=== PATIENT | female | born 1980 | race African-American/Black ===

== ENCOUNTER 2019-10-15 02:36 | Emergency (ER) | payer OTHER ==
[~2019-10-15] VITALS: Ht 152.4 cm; Wt 109.0 kg
[2019-10-15] MEDS ORDERED: NAPROXEN 500 MG TABLET PO ONE (03:30)
[2019-10-15] MEDS ORDERED: NEOMY/BACITR/POLYMYXIN OINT PACKET. TP ONE (03:30)
[2019-10-15] MEDS ORDERED: CEPH-264 PO (03:34)
[2019-10-15] MEDS ORDERED: ACET-704 PO (03:35)
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
[2019-10-15 04:30] VITALS: BP 162/91
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
== END 2019-10-15 04:37 | disposition home or self-care (01) ==
LOC: ER 02:36
DX: S80.812A Abrasion, left lower leg, initial encounter (principal); M79.641 Pain in right hand; M19.90 Unspecified osteoarthritis, unspecified site; V00.141A Fall from scooter (nonmotorized), initial encounter; Y93.89 Activity, other specified; Y92.89 Other specified places as the place of occurrence of the external cause; Y99.8 Other external cause status
CPT/HCPCS: 29125; 73130; 99285

== ENCOUNTER 2021-06-09 20:35 | Observation (INO) | payer OTHER ==
[~2021-06-09] VITALS: Ht 152.4 cm; Wt 120.2 kg
[~2021-06-09 20:35] MED LIST: ACET-704 PO; CEPH-264 PO
[2021-06-09 22:05] LABS: BASO # 0.1 x10^3/uL (0.0-0.2); BASO % 2 % (0-3); EOS # 0.4 x10^3/uL (0.0-0.7); EOS % 5 % (0-3); HEMATOCRIT 35.1 % (36.0-47.0); HEMOGLOBIN 11.2 g/dL (12.0-15.5); LYMPH # 2.3 x10^3/uL (1.0-4.8); LYMPH % 28 % (24-48); MEAN CORPUSCULAR HEMOGLOBIN 22 pg (25-35); MEAN CORPUSCULAR HGB CONC 32 g/dL (31-37); MEAN CORPUSCULAR VOLUME 68 fL (79-100); MONO # 0.7 x10^3/uL (0.0-1.1); MONO % 8 % (0-9); NEUT # 4.7 x10^3/uL (1.8-7.7); NEUT % 57 % (31-73); PLATELET COUNT 386 x10^3/uL (140-400); RED BLOOD COUNT 5.17 x10^6/uL (3.50-5.40); RED CELL DISTRIBUTION WIDTH 19.9 % (11.5-14.5); WHITE BLOOD COUNT 8.3 x10^3/uL (4.0-11.0)
[2021-06-09 22:08] LABS: CLARITY,URINE HAZY; COLOR,URINE STRAW
[2021-06-09 22:09] LABS: BILIRUBIN,URINE NEGATIVE (NEG); NITRITE,URINE NEGATIVE (NEG); PROTEIN,URINE NEGATIVE (NEG-TRACE); UROBILINOGEN,URINE 0.2 mg/dL (0.2 mg/dL)
[2021-06-09 22:12] LABS: BACTERIA,URINE MODERATE /HPF (0-FEW); RBC,URINE OCC /HPF (0-2); WBC,URINE OCC /HPF (0-4)
[2021-06-09] MEDS ORDERED: ONDANSETRON PF 4 MG/2 ML VIAL. IVP ONE (22:15)
[2021-06-09] MEDS ORDERED: IV NORMAL SALINE 1000ML BAG 1,000 ML IV ONE (22:15)
[2021-06-09 22:16] LABS: GFR 75.1; POTASSIUM 3.7 mmol/L (3.5-5.1)
[2021-06-09 22:22] LABS: ALBUMIN 3.6 g/dL (3.4-5.0); ALBUMIN/GLOBULIN RATIO 0.8 (1.0-1.7); TOTAL BILIRUBIN 0.4 mg/dL (0.2-1.0); TOTAL PROTEIN 8.3 g/dL (6.4-8.2)
[2021-06-09 22:44] LABS: INFLUENZA A PATIENT NEGATIVE (NEGATIVE); INFLUENZA B PATIENT NEGATIVE (NEGATIVE)
--- NOTE | 2021-06-09 23:25 | PHYS DOC ---
Past Medical History Past Medical History: Hypertension, Other Additional Past Medical Histor: OSTEOARTHRITIS Past Surgical History: Additional Past Surgical Histo: FINGER SURGERY. Smoking Status: Never Smoker Alcohol Use: None Drug Use: None General Adult EDM: Chief Complaint: NAUSEA/VOMITING/DIARRHEA HPI: HPI: 40-year-old female presents with a chief complaint of nausea vomiting diarrhea and epigastric discomfort. Patient current symptoms started this past wednesday. Pain is located epigastric/RUQ without radiation. Symptoms started after a fried fish dinner on Wednesday.. Pain nausea and vomiting continue. Patient has had no relief with zofran. Review of Systems: Review of Systems: Constitutional: Denies fever or chills. [] Eyes: Denies change in visual acuity. [] HENT: Denies nasal congestion or sore throat. [] Respiratory: Denies cough or shortness of breath. [] Cardiovascular: Denies chest pain or edema. [] GI: positive abdominal pain, nausea, vomiting, diarrhea. [] : Denies dysuria. [] Musculoskeletal: Denies back pain or joint pain. [] Integument: Denies rash. [] Neurologic: Denies headache, focal weakness or sensory changes. [] Endocrine: Denies polyuria or polydipsia. [] Lymphatic: Denies swollen glands. [] Psychiatric: Denies depression or anxiety. [] Heart Score: C/O Chest Pain: N/A Risk Factors: Risk Factors: DM, Current or recent (<one month) smoker, HTN, HLP, family history of CAD, obesity. Risk Scores: Score 0 - 3: 2.5% MACE over next 6 weeks - Discharge Home Score 4 - 6: 20.3% MACE over next 6 weeks - Admit for Clinical Observation Score 7 - 10: 72.7% MACE over next 6 weeks - Early Invasive Strategies Current Medications: Current Medications Medications (Trade) Dose Ordered Sig/Samara Start Time Stop Time Status Last Admin Dose Admin Ondansetron HCl (Zofran) 4 mg 1X ONCE 06/09/21 22:15 06/09/21 22:16 DC 06/09/21 22:47 4 MG Sodium Chloride 1,000 ml @ 1,000 mls/hr 1X ONCE 06/09/21 22:15 06/09/21 23:14 DC 06/09/21 22:47 1,000 MLS/HR Allergies: Allergies: Allergies Coded Allergies Type Severity Reaction Last Updated Verified morphine Allergy Intermediate Itching 10/15/19 Yes Physical Exam: PE: Constitutional: Well developed, well nourished, no acute distress, non-toxic appearance. [] HENT: Normocephalic, atraumatic, bilateral external ears normal, oropharynx moist, no oral exudates, nose normal. [] Eyes: PERRLA, EOMI, conjunctiva normal, no discharge. [] Neck: Normal range of motion, no tenderness, supple, no stridor. [] Cardiovascular:Heart rate regular rhythm, no murmur [] Lungs & Thorax: Bilateral breath sounds clear to auscultation [] Abdomen: Bowel sounds normal, soft, no masses, no pulsatile masses. [tender to palpation epigastic and RUQ] Skin: Warm, dry, no erythema, no rash. [] Back: No tenderness, no CVA tenderness. [] Extremities: No tenderness, no cyanosis, no clubbing, ROM intact, no edema. [] Neurologic: Alert and oriented X 3, normal motor function, normal sensory function, no focal deficits noted. [] Psychologic: Affect normal, judgement normal, mood normal. [] Current Patient Data: Labs: Laboratory Tests Test 06/09/21 21:55 06/09/21 21:56 06/09/21 22:01 06/09/21 22:15 White Blood Count 8.3 x10^3/uL (4.0-11.0) Red Blood Count 5.17 x10^6/uL (3.50-5.40) Hemoglobin 11.2 g/dL (12.0-15.5) L Hematocrit 35.1 % (36.0-47.0) L Mean Corpuscular Volume 68 fL (79-100) L Mean Corpuscular Hemoglobin 22 pg (25-35) L Mean Corpuscular Hemoglobin Concent 32 g/dL (31-37) Red Cell Distribution Width 19.9 % (11.5-14.5) H Platelet Count 386 x10^3/uL (140-400) Neutrophils (%) (Auto) 57 % (31-73) Lymphocytes (%) (Auto) 28 % (24-48) Monocytes (%) (Auto) 8 % (0-9) Eosinophils (%) (Auto) 5 % (0-3) H Basophils (%) (Auto) 2 % (0-3) Neutrophils # (Auto) 4.7 x10^3/uL (1.8-7.7) Lymphocytes # (Auto) 2.3 x10^3/uL (1.0-4.8) Monocytes # (Auto) 0.7 x10^3/uL (0.0-1.1) Eosinophils # (Auto) 0.4 x10^3/uL (0.0-0.7) Basophils # (Auto) 0.1 x10^3/uL (0.0-0.2) Platelet Estimate Pending Sodium Level 138 mmol/L (136-145) Potassium Level 3.7 mmol/L (3.5-5.1) Chloride Level 102 mmol/L (98-107) Carbon Dioxide Level 25 mmol/L (21-32) Anion Gap 11 (6-14) Blood Urea Nitrogen 8 mg/dL (7-20) Creatinine 1.0 mg/dL (0.6-1.0) Estimated GFR (Cockcroft-Gault) 75.1 BUN/Creatinine Ratio 8 (6-20) Glucose Level 92 mg/dL (70-99) Calcium Level 9.0 mg/dL (8.5-10.1) Total Bilirubin 0.4 mg/dL (0.2-1.0) Aspartate Amino Transferase (AST) 414 U/L (15-37) H Alanine Aminotransferase (ALT) 600 U/L (14-59) H Alkaline Phosphatase 198 U/L (46-116) H Total Protein 8.3 g/dL (6.4-8.2) H Albumin 3.6 g/dL (3.4-5.0) Albumin/Globulin Ratio 0.8 (1.0-1.7) L Urine Collection Type U cath Urine Color Straw Urine Clarity Hazy Urine pH 6.0 (<5.0-8.0) Urine Specific [place] >=1.030 (1.000-1.030) Urine Protein Negative mg/dL (NEG-TRACE) Urine Glucose (UA) Negative mg/dL (NEG) Urine Ketones (Stick) Negative mg/dL (NEG) Urine Blood Negative (NEG) Urine Nitrite Negative (NEG) Urine Bilirubin Negative (NEG) Urine Urobilinogen Dipstick 0.2 mg/dL (0.2 mg/dL) Urine Leukocyte Esterase Negative (NEG) Urine RBC Occ /HPF (0-2) Urine WBC Occ /HPF (0-4) Urine Squamous Epithelial Cells Mod /LPF Urine Bacteria Moderate /HPF (0-FEW) Urine Mucus Slight /LPF POC Urine HCG, Qualitative Hcg negative (Negative) Influenza Type A Antigen Negative (NEGATIVE) Influenza Type B Antigen Negative (NEGATIVE) SARS-CoV-2 Antigen (Rapid) Negative (NEGATIVE) Laboratory Tests 06/09/21 21:55 Laboratory Tests 06/09/21 21:55 Vital Signs: Vital Signs Date Time Temp Pulse Resp B/P (MAP) Pulse Ox O2 Delivery O2 Flow Rate FiO2 06/09/21 21:30 98.4 71 18 154/73 (100) 100 Room Air 98.4 EKG: EKG: [] Radiology/Procedures: Radiology/Procedures: [] Course & Med Decision Making: Course & Med Decision Making Pertinent Labs and Imaging studies reviewed. (See chart for details) []Treated with zofran, IV fluids, fentanyl and zosyn. Patient admitted to hospitalist with general surgery consult. Konstantin Disclaimer: Konstantin Disclaimer: This electronic medical record was generated, in whole or in part, using a voice recognition dictation system. Departure Departure Impression: Primary Impression: Acute cholecystitis Disposition: ADMITTED INPATIENT Condition: STABLE Referrals: ANGEL EDWARDS APRN (PCP) ANA DURAND DO Jun 09, 2021 23:25
[2021-06-10] VITALS (9 sets, daily range): BP systolic 132–186; BP diastolic 66–99
[2021-06-10] MEDS ORDERED: fentaNYL PF VIAL 100 MCG/2 ML VIAL IVP ONE (00:15)
[2021-06-10] MEDS ORDERED: MORPHINE SULFATE 2 MG/ML INJ. IVP ONE (00:15)
[2021-06-10] MEDS ORDERED: fentaNYL PF VIAL 100 MCG/2 ML VIAL ONE ×4 (00:16→19:18)
--- NOTE | 2021-06-10 01:05 | RAD ---
EXAMINATION: US ABDOMEN LIMITED INDICATION: 40 years, Female, epigastric pain, elevated liver test. COMPARISON: None TECHNIQUE: Grayscale, color Doppler and limited spectral Doppler images of the right upper quadrant w ere obtained. FINDINGS: LIVER: SIZE (LENGTH): 19.4 cm. ECHOGENICITY: Increased PARENCHYMA: Mild heterogeneous echotexture. No discrete focal lesion. INTRAHEPATIC BILE DUCTS: Nondilated. PORTAL VEIN: Patent with normal hepatopedal flow. GALLBLADDER: GALLBLADDER WALL THICKNESS: 4 mm. MORPHOLOGY: Normal morphology. Trace amount of pericholecystic free fluid. LUMEN: Multiple cholelithiasis. Positive Nguyen's sign. COMMON BILE DUCT DIAMETER: 5 mm. RIGHT KIDNEY: MEASURES: 9.8 cm in length. MORPHOLOGY/PARENCHYMA: Normal corticomedullary differentiation with no shadowing calculus or discrete masses. COLLECTING SYSTEM: No hydronephrosis. PANCREAS: VISUALIZED PORTIONS: Head and body APPEARANCE: Within normal limits. OTHER: RETROPERITONEUM, INFERIOR VENA CAVA: Normal caliber. AORTA: Normal caliber. FLUID:No free fluid. IMPRESSION: 1. Gallbladder wall thickening with multiple cholelithiasis and trace amount of pericholecystic fat s tranding. Nguyen's sign is positive. Findings concerning for acute calculus cholecystitis. Clinical c orrelation is advised. 2. Mild hepatomegaly with moderate diffuse steatosis. Electronically signed by: Xin Tejada MD (06/10/2021 1:02 AM) [facility]
[2021-06-10] MEDS ORDERED: ONDANSETRON PF 4 MG/2 ML VIAL. IVP PRN ×3 (01:45→17:45)
[2021-06-10] MEDS ORDERED: PIPERACILLIN/TAZOBACTAM 4.5 GM in IV NORMAL SALINE 100ML 100 ML IV SCH (02:00)
[2021-06-10] MEDS: PIPERACILLIN/TAZOBACTAM 3.375 GM in IV NORMAL SALINE 50ML 50 ML IV SCH ×4 (02:00→19:03)
[2021-06-10 03:13] LABS: ANISOCYTOSIS SLIGHT; HYPOCHROMIA MOD; MICROCYTOSIS MARKED; PLT ESTIMATE ADEQUATE (ADEQUATE); POLYCHROMASIA SLIGHT
[2021-06-10 03:14] LABS: OVALOCYTES OCC; TARGET CELLS OCC; TEAR DROP CELLS OCC
--- NOTE | 2021-06-10 03:20 | NUR ---
The patient, STEFANY MORRISSEY, 40 y/o, F admitted by BEN YAO MD, was given written information regarding hospital policies, unit procedures and contact persons. Valuables were checked and all questions answered. Pt. is npo. Verbalized understanding. Notified by ER nurse that ER doctor was going to call surgeon about consult. Monitoring.
[2021-06-10] MEDS ORDERED: LISI1TAB37 PO (03:34)
[2021-06-10] MEDS ORDERED: PROCHLORPERAZINE 10 MG/2 ML VIAL. IVP PRN (08:30)
[2021-06-10] MEDS ORDERED: ACETAMINOPHEN 325 MG TABLET. PO PRN (08:30)
[2021-06-10] MEDS ORDERED: ZOLPIDEM 5 MG TABLET. PO PRN (08:30)
[2021-06-10] MEDS ORDERED: ELECTROLYTE (NON-ICU) PROTOCOL. MC PRN (08:30)
[2021-06-10] MEDS ORDERED: CALCIUM CARBONATE 500 MG TAB.CHEW PO PRN (08:30)
--- NOTE | 2021-06-10 08:46 | PDOC1 ---
History and Physical Date of Service: DOS: DATE: 06/10/21 TIME: 08:39 Chief Complaint: Chief Complain: Abdominal pain, nausea vomiting History of Present Illness: HPI: Patient is 40-year-old -[place] female presented to the emergency room overnight due to abdominal pain decreased p.o. intake. She said the symptoms began about a week ago after she had eaten some chicken nachos. Says she de veloped the epigastric right upper quadrant pain and had multiple episodes of vomiting. Initially went to urgent care and there concern for food poisoning was provided symptomatic treatment with antiemetics and pain control. She says over the next few days the symptoms actually subsided. On Wednesday she went out to dinner with her and was not able to eat much but after returning home she ate more of her meal. After that she began having the similar pain nausea vomiting type episodes. Pain was notably worse this time. Initially thought was an episode like last and would self resolve. However through Wednesday and early Wednesday she continued pain and nausea vomiting. Patient presented here last night. Work-up in ER showed acute acalculous cholecystitis on imaging. She was given dose of Zosyn and pain control nausea control and surgery consulted. When I evaluated the patient she was resting in bed said the medications were helping her symptoms. Only home medication is lisinopril for hypertension Past Medical/Surgical History: PMH/PSH: Hypertension Allergies: Allergies: Coded Allergies: aspirin (Verified Allergy, Intermediate, Nausea, 06/10/21) morphine (Verified Allergy, Intermediate, Itching, 10/15/19) Family History: Family History: Hypertension Social History: Social History: Occasional alcohol use. Denies tobacco or drug use Current Medications: Current Medications Current Medications Ondansetron HCl (Zofran) 4 mg 1X ONCE IVP Last administered on 06/09/21at 22:47; Start 06/09/21 at 22:15; Stop 06/09/21 at 22:16; Status DC Sodium Chloride 1,000 ml @ 1,000 mls/hr 1X ONCE IV Last administered on 06/09/21at 22:47; Start 06/09/21 at 22:15; Stop 06/09/21 at 23:14; Status DC Morphine Sulfate (Morphine Sulfate) 2 mg 1X ONCE IVP ; Start 06/10/21 at 00:15; Stop 06/10/21 at 00:16; Status DC Fentanyl Citrate (Fentanyl 2ml Vial) 50 mcg 1X ONCE IVP Last administered on 06/10/21at 00:17; Start 06/10/21 at 00:15; Stop 06/10/21 at 00:16; Status DC Fentanyl Citrate (Fentanyl 2ml Vial) 100 mcg STK-MED ONCE .ROUTE ; Start 06/10/21 at 00:16; Stop 06/10/21 at 00:16; Status DC Piperacillin Sod/ Tazobactam Sod 4.5 gm/Sodium Chloride 100 ml @ 200 mls/hr Q6HRS IV IV ; Start 06/10/21 at 02:00; Status UNV Ondansetron HCl (Zofran) 4 mg PRN Q8HRS PRN IVP NAUSEA/VOMITING; Start 06/10/21 at 01:45; Stop 06/11/21 at 01:44 Fentanyl Citrate (Fentanyl 2ml Vial) 50 mcg PRN Q1HR PRN IVP PAIN; Start 06/10/21 at 01:45; Stop 06/11/21 at 01:44 Piperacillin Sod/ Tazobactam Sod 3.375 gm/Sodium Chloride 50 ml @ 100 mls/hr Q6HRS IV Last administered on 06/10/21at 07:36; Start 06/10/21 at 02:00 Active Scripts Active Reported Lisinopril-Hctz 20-12.5 Mg Tab (Lisinopril/Hydrochlorothiazide) 1 Each Tablet 1 Tab PO DAILY ROS: Review of Systems Review of System Unless noted in HPI 14 point review systems was negative Physical Exam: Vital Signs: Vital Signs Date Time Temp Pulse Resp B/P (MAP) Pulse Ox O2 Delivery O2 Flow Rate FiO2 06/10/21 07:45 Room Air 06/10/21 07:00 98.4 58 18 139/77 (97) 99 98.4 Physcial Exam: GEN: No apparent distress. Alert and oriented HEENT: Normal cephalic, atraumatic, external auditory canals are patent EYES: Extraocular muscles are intact, pupil are equally round and reactive to light and accommodation MUSCULOSKELETAL: Well developed , well nourished, good range of motion ENDOCRINE: No thyromegaly was palpated LYMPHATICS: No cervical chain or axillary nodes were noted HEMATOPOIETIC: No bruising NECK: Supple, no JVD, no thyromegaly was noted LUNGS: Clear to auscultation in all lung cooper without rhonchi or wheezing HEART: RRR, S1, S2 present. Peripheral pulses intact, no obvious murmurs noted ABDOMEN: Very tender in epigastrium and right upper quadrant. Positive Nguyen sign. Not as much tenderness in lower quadrants normal bowel sounds EXTREMITIES: Without clubbing, cyanosis, or edema. Pedal pulses intact. Negative Homans sign NEUROLOGIC: Normal speech and tone. A&O x 3, moves all extremities, no obvious focal deficits PSYCHIATRIC: Normal affect, normal mood. Stable SKIN: No ulcerations or rashes, good skin turgor, no jaundice VASCULAR: Good capillary refill, neurovascular bundle appears to be intact Labs: Labs: Laboratory Tests Test 06/09/21 21:55 06/09/21 21:56 06/09/21 22:01 06/09/21 22:15 White Blood Count 8.3 x10^3/uL (4.0-11.0) Red Blood Count 5.17 x10^6/uL (3.50-5.40) Hemoglobin 11.2 g/dL (12.0-15.5) Hematocrit 35.1 % (36.0-47.0) Mean Corpuscular Volume 68 fL (79-100) Mean Corpuscular Hemoglobin 22 pg (25-35) Mean Corpuscular Hemoglobin Concent 32 g/dL (31-37) Red Cell Distribution Width 19.9 % (11.5-14.5) Platelet Count 386 x10^3/uL (140-400) Neutrophils (%) (Auto) 57 % (31-73) Lymphocytes (%) (Auto) 28 % (24-48) Monocytes (%) (Auto) 8 % (0-9) Eosinophils (%) (Auto) 5 % (0-3) Basophils (%) (Auto) 2 % (0-3) Neutrophils # (Auto) 4.7 x10^3/uL (1.8-7.7) Lymphocytes # (Auto) 2.3 x10^3/uL (1.0-4.8) Monocytes # (Auto) 0.7 x10^3/uL (0.0-1.1) Eosinophils # (Auto) 0.4 x10^3/uL (0.0-0.7) Basophils # (Auto) 0.1 x10^3/uL (0.0-0.2) Platelet Estimate Adequate (ADEQUATE) Polychromasia Slight Hypochromasia Mod Anisocytosis Slight Microcytosis Marked Target Cells Occ Tear Drop Cells Occ Ovalocytes Occ Sodium Level 138 mmol/L (136-145) Potassium Level 3.7 mmol/L (3.5-5.1) Chloride Level 102 mmol/L (98-107) Carbon Dioxide Level 25 mmol/L (21-32) Anion Gap 11 (6-14) Blood Urea Nitrogen 8 mg/dL (7-20) Creatinine 1.0 mg/dL (0.6-1.0) Estimated GFR (Cockcroft-Gault) 75.1 BUN/Creatinine Ratio 8 (6-20) Glucose Level 92 mg/dL (70-99) Calcium Level 9.0 mg/dL (8.5-10.1) Total Bilirubin 0.4 mg/dL (0.2-1.0) Aspartate Amino Transf (AST/SGOT) 414 U/L (15-37) Alanine Aminotransferase (ALT/SGPT) 600 U/L (14-59) Alkaline Phosphatase 198 U/L (46-116) Total Protein 8.3 g/dL (6.4-8.2) Albumin 3.6 g/dL (3.4-5.0) Albumin/Globulin Ratio 0.8 (1.0-1.7) Lipase 103 U/L (73-393) Urine Collection Type U cath Urine Color Straw Urine Clarity Hazy Urine pH 6.0 (<5.0-8.0) Urine Specific [place] >=1.030 (1.000-1.030) Urine Protein Negative mg/dL (NEG-TRACE) Urine Glucose (UA) Negative mg/dL (NEG) Urine Ketones (Stick) Negative mg/dL (NEG) Urine Blood Negative (NEG) Urine Nitrite Negative (NEG) Urine Bilirubin Negative (NEG) Urine Urobilinogen Dipstick 0.2 mg/dL (0.2 mg/dL) Urine Leukocyte Esterase Negative (NEG) Urine RBC Occ /HPF (0-2) Urine WBC Occ /HPF (0-4) Urine Squamous Epithelial Cells Mod /LPF Urine Bacteria Moderate /HPF (0-FEW) Urine Mucus Slight /LPF Bedside Urine HCG, Qualitative Hcg negative (Negative) Influenza Type A Antigen Negative (NEGATIVE) Influenza Type B Antigen Negative (NEGATIVE) SARS-CoV-2 Antigen (Rapid) Negative (NEGATIVE) Laboratory Tests Test 06/09/21 21:55 06/09/21 21:56 06/09/21 22:01 06/09/21 22:15 White Blood Count 8.3 x10^3/uL (4.0-11.0) Red Blood Count 5.17 x10^6/uL (3.50-5.40) Hemoglobin 11.2 g/dL (12.0-15.5) Hematocrit 35.1 % (36.0-47.0) Mean Corpuscular Volume 68 fL (79-100) Mean Corpuscular Hemoglobin 22 pg (25-35) Mean Corpuscular Hemoglobin Concent 32 g/dL (31-37) Red Cell Distribution Width 19.9 % (11.5-14.5) Platelet Count 386 x10^3/uL (140-400) Neutrophils (%) (Auto) 57 % (31-73) Lymphocytes (%) (Auto) 28 % (24-48) Monocytes (%) (Auto) 8 % (0-9) Eosinophils (%) (Auto) 5 % (0-3) Basophils (%) (Auto) 2 % (0-3) Neutrophils # (Auto) 4.7 x10^3/uL (1.8-7.7) Lymphocytes # (Auto) 2.3 x10^3/uL (1.0-4.8) Monocytes # (Auto) 0.7 x10^3/uL (0.0-1.1) Eosinophils # (Auto) 0.4 x10^3/uL (0.0-0.7) Basophils # (Auto) 0.1 x10^3/uL (0.0-0.2) Platelet Estimate Adequate (ADEQUATE) Polychromasia Slight Hypochromasia Mod Anisocytosis Slight Microcytosis Marked Target Cells Occ Tear Drop Cells Occ Ovalocytes Occ Sodium Level 138 mmol/L (136-145) Potassium Level 3.7 mmol/L (3.5-5.1) Chloride Level 102 mmol/L (98-107) Carbon Dioxide Level 25 mmol/L (21-32) Anion Gap 11 (6-14) Blood Urea Nitrogen 8 mg/dL (7-20) Creatinine 1.0 mg/dL (0.6-1.0) Estimated GFR (Cockcroft-Gault) 75.1 BUN/Creatinine Ratio 8 (6-20) Glucose Level 92 mg/dL (70-99) Calcium Level 9.0 mg/dL (8.5-10.1) Total Bilirubin 0.4 mg/dL (0.2-1.0) Aspartate Amino Transf (AST/SGOT) 414 U/L (15-37) Alanine Aminotransferase (ALT/SGPT) 600 U/L (14-59) Alkaline Phosphatase 198 U/L (46-116) Total Protein 8.3 g/dL (6.4-8.2) Albumin 3.6 g/dL (3.4-5.0) Albumin/Globulin Ratio 0.8 (1.0-1.7) Lipase 103 U/L (73-393) Urine Collection Type U cath Urine Color Straw Urine Clarity Hazy Urine pH 6.0 (<5.0-8.0) Urine Specific [place] >=1.030 (1.000-1.030) Urine Protein Negative mg/dL (NEG-TRACE) Urine Glucose (UA) Negative mg/dL (NEG) Urine Ketones (Stick) Negative mg/dL (NEG) Urine Blood Negative (NEG) Urine Nitrite Negative (NEG) Urine Bilirubin Negative (NEG) Urine Urobilinogen Dipstick 0.2 mg/dL (0.2 mg/dL) Urine Leukocyte Esterase Negative (NEG) Urine RBC Occ /HPF (0-2) Urine WBC Occ /HPF (0-4) Urine Squamous Epithelial Cells Mod /LPF Urine Bacteria Moderate /HPF (0-FEW) Urine Mucus Slight /LPF Bedside Urine HCG, Qualitative Hcg negative (Negative) Influenza Type A Antigen Negative (NEGATIVE) Influenza Type B Antigen Negative (NEGATIVE) SARS-CoV-2 Antigen (Rapid) Negative (NEGATIVE) Assessment/Plan Assessment/Plan Acute cholecystitis, history hypertension -Presented with a week long history of symptoms abdominal pain nausea vomiting -Presented here overnight found to have calculus cholecystitis on imaging. -Given dose of Zosyn. Symptomatic control. Will hold off on further antibiotic doses for now -Consultation to surgery -Keep n.p.o. -Hold off DVT prophylaxis until seen by surgery -Home meds resumed as indicated Justifications for Admission Other Justification BEN YAO MD Jun 10, 2021 08:46
[2021-06-10] MEDS: SENNOSIDES/DOCUSATE 8.6/50MG TABLET. PO SCH ×2 (09:00→20:41)
--- NOTE | 2021-06-10 09:53 | NUR ---
SW following. Discussed with RN, pt from home, room air, NPO, rapid COVID-19 negative. Surgery consulted - possible surgery today. RN advised no SW needs at this time. SW will continue to follow.
[2021-06-10] MEDS: fentaNYL PF VIAL 100 MCG/2 ML VIAL IVP PRN ×6 (11:27→22:55)
[2021-06-10] MEDS ORDERED: fentaNYL PF VIAL 100 MCG/2 ML VIAL IVP PRN (14:30)
[2021-06-10] MEDS ORDERED: IV RINGERS,LACTATED 1000ML 1,000 ML IV SCH (14:30)
[2021-06-10] MEDS ORDERED: IOHEXOL 300 MG/ML 50 ML VIAL. ONE (14:56)
[2021-06-10] MEDS ORDERED: BISACODYL 10 MG SUPP.RECT. ONE ×2 (14:56→15:14)
[2021-06-10] MEDS ORDERED: BUPIVACAINE-EPI 0.5% 30 ML VIAL KIT. ONE (14:56)
[2021-06-10] MEDS ORDERED: SURGICEL HEMOSTAT 2X14 EACH. ONE (14:56)
[2021-06-10] MEDS ORDERED: HEPARIN 1,000 UNIT in IV NORMAL SALINE 1,000 ML for SURG PERIOP IRR ONE (16:00)
[2021-06-10] MEDS ORDERED: KETAMINE HCL IN NACL, ISO-OSM 50 MG/5 ML SYRINGE ONE (16:11)
[2021-06-10] MEDS ORDERED: MIDAZOLAM HCL/PF 2 MG/2 ML VIAL. ONE (16:12)
[2021-06-10] MEDS ORDERED: ROCURONIUM 50 MG/5 ML VIAL. ONE ×2 (16:13→17:01)
[2021-06-10] MEDS ORDERED: ONDANSETRON PF 4 MG/2 ML VIAL. ONE (16:13)
[2021-06-10] MEDS ORDERED: SUCCINYLCHOLINE 200 MG/10 ML VIAL. ONE (16:13)
[2021-06-10] MEDS ORDERED: PROPOFOL 10 MG/ML (20ML) VIAL. IV ONE (16:13)
[2021-06-10] MEDS ORDERED: ESMOLOL 100 MG/10 ML VIAL. IVP ONE (16:13)
[2021-06-10] MEDS ORDERED: LIDOCAINE 2% PF 5 ML VIAL. ONE ×2 (16:13)
[2021-06-10] MEDS ORDERED: DEXAMETHASONE SOD PHOS 4 MG/ML VIAL ONE (16:13)
[2021-06-10] MEDS ORDERED: SUGAMMADEX SODIUM 200 MG/2 ML VIAL. IVP ONE (16:15)
--- NOTE | 2021-06-10 16:27 | PDOC2 ---
CONSULT Date of Consult Date of Consult DATE: 06/10/21 TIME: 16:23 Reason for Consult Reason for Consult: Calculous cholecystitis Referring Physician Referring Physician: Dr. Boyce Identification/Chief Complaint Chief Complaint RUQ abd pain Source Source: Chart review, Patient History of Present Illness Reason for Visit: 40 yo F with c/o one week RUQ abd pain. Pt notes this worsening, prompting ER visit. She does report feeling somewhat better since admission. No previous episodes prior to this. Past Medical History Cardiovascular: HTN Past Surgical History Past Surgical History: Family History Family History: Diabetes Social History No ALCOHOL: social Current Medications Current Medications Current Medications Ondansetron HCl (Zofran) 4 mg 1X ONCE IVP Last administered on 06/09/21at 22:47; Start 06/09/21 at 22:15; Stop 06/09/21 at 22:16; Status DC Sodium Chloride 1,000 ml @ 1,000 mls/hr 1X ONCE IV Last administered on 06/09/21at 22:47; Start 06/09/21 at 22:15; Stop 06/09/21 at 23:14; Status DC Morphine Sulfate (Morphine Sulfate) 2 mg 1X ONCE IVP ; Start 06/10/21 at 00:15; Stop 06/10/21 at 00:16; Status DC Fentanyl Citrate (Fentanyl 2ml Vial) 50 mcg 1X ONCE IVP Last administered on 06/10/21at 00:17; Start 06/10/21 at 00:15; Stop 06/10/21 at 00:16; Status DC Fentanyl Citrate (Fentanyl 2ml Vial) 100 mcg STK-MED ONCE .ROUTE ; Start 06/10/21 at 00:16; Stop 06/10/21 at 00:16; Status DC Piperacillin Sod/ Tazobactam Sod 4.5 gm/Sodium Chloride 100 ml @ 200 mls/hr Q6HRS IV IV ; Start 06/10/21 at 02:00; Status UNV Ondansetron HCl (Zofran) 4 mg PRN Q8HRS PRN IVP NAUSEA/VOMITING; Start 06/10/21 at 01:45; Stop 06/10/21 at 08:50; Status DC Fentanyl Citrate (Fentanyl 2ml Vial) 50 mcg PRN Q1HR PRN IVP PAIN Last administered on 06/10/21at 11:27; Start 06/10/21 at 01:45; Stop 06/11/21 at 01:44 Piperacillin Sod/ Tazobactam Sod 3.375 gm/Sodium Chloride 50 ml @ 100 mls/hr Q6HRS IV Last administered on 06/10/21at 12:30; Start 06/10/21 at 02:00 Ondansetron HCl (Zofran) 4 mg PRN Q6HRS PRN IVP NAUSEA/VOMITING; Start 06/10/21 at 08:30 Prochlorperazine Edisylate (Compazine) 10 mg PRN Q6HRS PRN IVP NAUSEA/VOMITING, 2ND CHOICE; Start 06/10/21 at 08:30 Calcium Carbonate/ Glycine (Tums) 500 mg PRN Q3HRS PRN PO UPSET STOMACH; Start 06/10/21 at 08:30 Zolpidem Tartrate (Ambien) 5 mg PRN QHS PRN PO INSOMNIA, MAY REPEAT IN 1HR; Start 06/10/21 at 08:30 Info (Non-Icu Electrolyte Protocol) 1 ea PRN DAILY PRN MC SEE COMMENTS; Start 06/10/21 at 08:30 Acetaminophen (Tylenol) 650 mg PRN Q6HRS PRN PO Headaches, Temp > 101.5F; Start 06/10/21 at 08:30 Senna/Docusate Sodium (Senna Plus) 1 tab BID PO ; Start 06/10/21 at 09:00 Fentanyl Citrate (Fentanyl 2ml Vial) 25 mcg PRN Q5MIN PRN IVP MILD PAIN 1-3; Start 06/10/21 at 14:30; Stop 06/11/21 at 14:29 Fentanyl Citrate (Fentanyl 2ml Vial) 50 mcg PRN Q5MIN PRN IVP MODERATE PAIN 4- 6; Start 06/10/21 at 14:30; Stop 06/11/21 at 14:29 Ringer's Solution 1,000 ml @ 30 mls/hr Q24H IV ; Start 06/10/21 at 14:30; Stop 06/11/21 at 02:29 Prochlorperazine Edisylate (Compazine) 5 mg PACU PRN PRN IVP NAUSEA, MRX1; Start 06/10/21 at 14:30; Stop 06/11/21 at 14:29 Heparin Sodium (Porcine) 1000 unit/Sodium Chloride 1,001 ml @ 1,001 mls/hr 1X ONCE IRR ; Start 06/10/21 at 16:00; Stop 06/10/21 at 16:59 Cellulose (Surgicel Hemostat 2x14) 1 each STK-MED ONCE .ROUTE ; Start 06/10/21 at 14:56; Stop 06/10/21 at 14:56; Status DC Bupivacaine HCl/ Epinephrine Bitart (Sensorcain-Epi 0.5% Kit) 30 ml STK-MED ONCE .ROUTE ; Start 06/10/21 at 14:56; Stop 06/10/21 at 14:56; Status DC Iohexol (Omnipaque 300 Mg/ml) 50 ml STK-MED ONCE .ROUTE ; Start 06/10/21 at 14:56; Stop 06/10/21 at 14:56; Status DC Bisacodyl (Dulcolax Supp) 10 mg STK-MED ONCE .ROUTE ; Start 06/10/21 at 14:56; Stop 06/10/21 at 14:56; Status DC Bisacodyl (Dulcolax Supp) 10 mg STK-MED ONCE .ROUTE ; Start 06/10/21 at 15:14; Stop 06/10/21 at 15:14; Status DC Sugammadex Sodium (Bridion) 400 mg 1X ONCE IVP ; Start 06/10/21 at 16:15; Stop 06/10/21 at 16:16; Status DC Ketamine HCl (Ketamine) 50 mg STK-MED ONCE .ROUTE ; Start 06/10/21 at 16:11; Stop 06/10/21 at 16:12; Status DC Midazolam HCl (Versed) 2 mg STK-MED ONCE .ROUTE ; Start 06/10/21 at 16:12; Stop 06/10/21 at 16:12; Status DC Lidocaine HCl (Lidocaine Pf 2% Vial) 5 ml STK-MED ONCE .ROUTE ; Start 06/10/21 at 16:13; Stop 06/10/21 at 16:13; Status DC Propofol (Diprivan) 200 mg STK-MED ONCE IV ; Start 06/10/21 at 16:13; Stop 06/10/21 at 16:13; Status DC Ondansetron HCl (Zofran) 4 mg STK-MED ONCE .ROUTE ; Start 06/10/21 at 16:13; Stop 06/10/21 at 16:13; Status DC Esmolol HCl (Brevibloc) 100 mg STK-MED ONCE IVP ; Start 06/10/21 at 16:13; Stop 06/10/21 at 16:13; Status DC Dexamethasone Sodium Phosphate (Decadron) 4 mg STK-MED ONCE .ROUTE ; Start 06/10 at 16:13; Stop 06/10/21 at 16:13; Status DC Lidocaine HCl (Lidocaine Pf 2% Vial) 5 ml STK-MED ONCE .ROUTE ; Start 06/10/21 at 16:13; Stop 06/10/21 at 16:13; Status DC Succinylcholine Chloride (Anectine) 200 mg STK-MED ONCE .ROUTE ; Start 06/10/21 at 16:13; Stop 06/10/21 at 16:14; Status DC Rocuronium [place] (Zemuron) 50 mg STK-MED ONCE .ROUTE ; Start 06/10/21 at 16:13; Stop 06/10/21 at 16:14; Status DC Active Scripts Active Reported Lisinopril-Hctz 20-12.5 Mg Tab (Lisinopril/Hydrochlorothiazide) 1 Each Tablet 1 Tab PO DAILY Allergies Allergies: Coded Allergies: aspirin (Verified Allergy, Intermediate, Nausea, 06/10/21) morphine (Verified Allergy, Intermediate, Itching, 10/15/19) ROS Gastrointestinal: Yes Abdominal Pain Physical Exam General: Alert, Oriented X3, Cooperative, mild distress HEENT: Atraumatic Lungs: Normal air movement Abdomen: Soft, Other (TTP RUQ) Extremities: No clubbing, No cyanosis Skin: No rashes, No breakdown Neuro: Normal speech, Sensation intact Psych/Mental Status: Mental status NL, Mood NL Vitals VITALS Vital Signs Date Time Temp Pulse Resp B/P (MAP) Pulse Ox O2 Delivery O2 Flow Rate FiO2 06/10/21 15:10 98.1 65 18 161/76 100 Room Air 98.1 Labs Labs Laboratory Tests Test 06/09/21 21:55 06/09/21 21:56 06/09/21 22:01 06/09/21 22:15 White Blood Count 8.3 x10^3/uL (4.0-11.0) Red Blood Count 5.17 x10^6/uL (3.50-5.40) Hemoglobin 11.2 g/dL (12.0-15.5) Hematocrit 35.1 % (36.0-47.0) Mean Corpuscular Volume 68 fL (79-100) Mean Corpuscular Hemoglobin 22 pg (25-35) Mean Corpuscular Hemoglobin Concent 32 g/dL (31-37) Red Cell Distribution Width 19.9 % (11.5-14.5) Platelet Count 386 x10^3/uL (140-400) Neutrophils (%) (Auto) 57 % (31-73) Lymphocytes (%) (Auto) 28 % (24-48) Monocytes (%) (Auto) 8 % (0-9) Eosinophils (%) (Auto) 5 % (0-3) Basophils (%) (Auto) 2 % (0-3) Neutrophils # (Auto) 4.7 x10^3/uL (1.8-7.7) Lymphocytes # (Auto) 2.3 x10^3/uL (1.0-4.8) Monocytes # (Auto) 0.7 x10^3/uL (0.0-1.1) Eosinophils # (Auto) 0.4 x10^3/uL (0.0-0.7) Basophils # (Auto) 0.1 x10^3/uL (0.0-0.2) Platelet Estimate Adequate (ADEQUATE) Polychromasia Slight Hypochromasia Mod Anisocytosis Slight Microcytosis Marked Target Cells Occ Tear Drop Cells Occ Ovalocytes Occ Sodium Level 138 mmol/L (136-145) Potassium Level 3.7 mmol/L (3.5-5.1) Chloride Level 102 mmol/L (98-107) Carbon Dioxide Level 25 mmol/L (21-32) Anion Gap 11 (6-14) Blood Urea Nitrogen 8 mg/dL (7-20) Creatinine 1.0 mg/dL (0.6-1.0) Estimated GFR (Cockcroft-Gault) 75.1 BUN/Creatinine Ratio 8 (6-20) Glucose Level 92 mg/dL (70-99) Calcium Level 9.0 mg/dL (8.5-10.1) Total Bilirubin 0.4 mg/dL (0.2-1.0) Aspartate Amino Transf (AST/SGOT) 414 U/L (15-37) Alanine Aminotransferase (ALT/SGPT) 600 U/L (14-59) Alkaline Phosphatase 198 U/L (46-116) Total Protein 8.3 g/dL (6.4-8.2) Albumin 3.6 g/dL (3.4-5.0) Albumin/Globulin Ratio 0.8 (1.0-1.7) Lipase 103 U/L (73-393) Urine Collection Type U cath Urine Color Straw Urine Clarity Hazy Urine pH 6.0 (<5.0-8.0) Urine Specific [place] >=1.030 (1.000-1.030) Urine Protein Negative mg/dL (NEG-TRACE) Urine Glucose (UA) Negative mg/dL (NEG) Urine Ketones (Stick) Negative mg/dL (NEG) Urine Blood Negative (NEG) Urine Nitrite Negative (NEG) Urine Bilirubin Negative (NEG) Urine Urobilinogen Dipstick 0.2 mg/dL (0.2 mg/dL) Urine Leukocyte Esterase Negative (NEG) Urine RBC Occ /HPF (0-2) Urine WBC Occ /HPF (0-4) Urine Squamous Epithelial Cells Mod /LPF Urine Bacteria Moderate /HPF (0-FEW) Urine Mucus Slight /LPF Bedside Urine HCG, Qualitative Hcg negative (Negative) Influenza Type A Antigen Negative (NEGATIVE) Influenza Type B Antigen Negative (NEGATIVE) SARS-CoV-2 Antigen (Rapid) Negative (NEGATIVE) Laboratory Tests Test 06/09/21 21:55 06/09/21 21:56 06/09/21 22:01 06/09/21 22:15 White Blood Count 8.3 x10^3/uL (4.0-11.0) Red Blood Count 5.17 x10^6/uL (3.50-5.40) Hemoglobin 11.2 g/dL (12.0-15.5) Hematocrit 35.1 % (36.0-47.0) Mean Corpuscular Volume 68 fL (79-100) Mean Corpuscular Hemoglobin 22 pg (25-35) Mean Corpuscular Hemoglobin Concent 32 g/dL (31-37) Red Cell Distribution Width 19.9 % (11.5-14.5) Platelet Count 386 x10^3/uL (140-400) Neutrophils (%) (Auto) 57 % (31-73) Lymphocytes (%) (Auto) 28 % (24-48) Monocytes (%) (Auto) 8 % (0-9) Eosinophils (%) (Auto) 5 % (0-3) Basophils (%) (Auto) 2 % (0-3) Neutrophils # (Auto) 4.7 x10^3/uL (1.8-7.7) Lymphocytes # (Auto) 2.3 x10^3/uL (1.0-4.8) Monocytes # (Auto) 0.7 x10^3/uL (0.0-1.1) Eosinophils # (Auto) 0.4 x10^3/uL (0.0-0.7) Basophils # (Auto) 0.1 x10^3/uL (0.0-0.2) Platelet Estimate Adequate (ADEQUATE) Polychromasia Slight Hypochromasia Mod Anisocytosis Slight Microcytosis Marked Target Cells Occ Tear Drop Cells Occ Ovalocytes Occ Sodium Level 138 mmol/L (136-145) Potassium Level 3.7 mmol/L (3.5-5.1) Chloride Level 102 mmol/L (98-107) Carbon Dioxide Level 25 mmol/L (21-32) Anion Gap 11 (6-14) Blood Urea Nitrogen 8 mg/dL (7-20) Creatinine 1.0 mg/dL (0.6-1.0) Estimated GFR (Cockcroft-Gault) 75.1 BUN/Creatinine Ratio 8 (6-20) Glucose Level 92 mg/dL (70-99) Calcium Level 9.0 mg/dL (8.5-10.1) Total Bilirubin 0.4 mg/dL (0.2-1.0) Aspartate Amino Transf (AST/SGOT) 414 U/L (15-37) Alanine Aminotransferase (ALT/SGPT) 600 U/L (14-59) Alkaline Phosphatase 198 U/L (46-116) Total Protein 8.3 g/dL (6.4-8.2) Albumin 3.6 g/dL (3.4-5.0) Albumin/Globulin Ratio 0.8 (1.0-1.7) Lipase 103 U/L (73-393) Urine Collection Type U cath Urine Color Straw Urine Clarity Hazy Urine pH 6.0 (<5.0-8.0) Urine Specific [place] >=1.030 (1.000-1.030) Urine Protein Negative mg/dL (NEG-TRACE) Urine Glucose (UA) Negative mg/dL (NEG) Urine Ketones (Stick) Negative mg/dL (NEG) Urine Blood Negative (NEG) Urine Nitrite Negative (NEG) Urine Bilirubin Negative (NEG) Urine Urobilinogen Dipstick 0.2 mg/dL (0.2 mg/dL) Urine Leukocyte Esterase Negative (NEG) Urine RBC Occ /HPF (0-2) Urine WBC Occ /HPF (0-4) Urine Squamous Epithelial Cells Mod /LPF Urine Bacteria Moderate /HPF (0-FEW) Urine Mucus Slight /LPF Bedside Urine HCG, Qualitative Hcg negative (Negative) Influenza Type A Antigen Negative (NEGATIVE) Influenza Type B Antigen Negative (NEGATIVE) SARS-CoV-2 Antigen (Rapid) Negative (NEGATIVE) Images Images US c/w calculous cholecystitsi Assessment/Plan Assessment/Plan Calculous cholecystitis TO OR for laparoscopic versus open cholecystectomy with cholangiogram. R/R/B/A d/w pt and pt's SO. Risks, including, but not limited to: bleeding, infection, damage to surrounding structures, risk of anesthesia, risk of open. She is at increased risk of complications secondary to severe obesity. They appear to understand, their questions are answered and they elect to proceed. Thanks for consult! MIGUEL ANGEL JOLLEY MD Jun 10, 2021 16:27
[2021-06-10] MEDS ORDERED: ceFAZolin SODIUM IV Push 1 GM VIAL. IVP ONE ×2 (16:57)
[2021-06-10] MEDS ORDERED: GLYCOPYRROLATE 1 MG/5 ML VIAL. ONE (17:05)
[2021-06-10] MEDS ORDERED: IV DEXTROSE 5% 250 ML BAG. IV PRN (17:45)
[2021-06-10] MEDS ORDERED: IV NORMAL SALINE 1000ML BAG 1,000 ML IV SCH (17:45)
[2021-06-10] MEDS ORDERED: 0.9 % SODIUM CHLORIDE 10 ML DISP.SYRIN. IV PRN (17:45)
[2021-06-10] MEDS ORDERED: DEXTROSE 50% 25 GM / 50ML DISP.SYRIN. IV PRN (17:45)
[2021-06-10] MEDS ORDERED: NALOXONE 0.4 MG/ML VIAL. IV PRN (17:45)
--- NOTE | 2021-06-10 17:51 | PDOC4 ---
OPERATIVE NOTE Date: Date: Jun 10, 2021 Pre-Op Diagnosis: Calculous cholecystitis Post-Op Diagnosis: same Procedure Performed: laparoscopic cholecystectomy with cholangiogram Surgeon: Cedric Jolley Anesthesia Type: GETA plus local Blood Loss: 50 Specimans Obtained: gallbladder Findings: morbid obesity, normal liver, gallbladder with stones, normal cholangiograms, no other obvious pathology noted. Complications: none Operative Note: After obtaining informed consent, patient was taken to OR, induced under GETA and prepped in the usual fashion. 5 mm ports placed umbilical and RUQ, 12 port placed epigastric, all under laparoscopic guidance. Abdominal cavity was explored and normal except as noted above. Gallbladder was grasped and taken off fossa using cautery in dome down fashion. Cystic artery ligated with clips. Cholangiogram obtained via cystic duct and was normal. Cystic duct was ligated with hemolok and clips. Gallbladder was placed in bag, delivered and sent to pathology. Copious irrigation. No evidence of bleeding or other pathology. Ports removed without difficulty. Fascia repaired with 0 vicryl. Skin repaired with 4 0 monocryl. Dressing placed. Patient tolerated procedure well and sent to PACU in stable condition. All counts correct. Wound class is 2. MIGUEL ANGEL JOLLEY MD Jun 10, 2021 17:51
[2021-06-10] MEDS ORDERED: PROCHLORPERAZINE 10 MG/2 ML VIAL. ONE (18:15)
[2021-06-10] MEDS: PROCHLORPERAZINE 10 MG/2 ML VIAL. IVP PRN ×2 (18:24→18:35)
--- NOTE | 2021-06-10 18:33 | RAD ---
DG INTRAOPERATIVE CHOLANGIOGRAM History: Reason: CHOLANGIOGRAMS IN OR WITH C-ARM / Spl. Instructions: / History: . Pain Comparison: None. Technique/findings: Fluoroscopy provided intraoperatively for cholangiogram after cholecystectomy. No biliary ductal dila tation. Contrast noted within the small bowel. See procedure note for further details. Fluoroscopy time: Less than 1 minute. Number of fluoroscopic images: 1 Impression: 1. Fluoroscopy provided during intraoperative cholangiogram. No common bile duct obstruction. Electronically signed by: Vern Washburn DO (06/10/2021 6:30 PM) [facility]
[2021-06-10] MEDS: DOCUSATE SODIUM 100 MG CAPSULE. PO SCH (20:41)
[2021-06-10] MEDS: IV RINGERS,LACTATED 1000ML 1,000 ML IV SCH (21:00)
[2021-06-10] MEDS: hydroCHLOROthiazide 12.5 MG CAPSULE PO SCH (22:56)
[2021-06-10] MEDS: LISINOPRIL 20 MG TABLET PO SCH (22:56)
[2021-06-10] MEDS ORDERED: SIMETHICONE 80 MG TAB.CHEW PO PRN ×2 (23:15)
[2021-06-11] MEDS: PIPERACILLIN/TAZOBACTAM 3.375 GM in IV NORMAL SALINE 50ML 50 ML IV SCH ×3 (00:13→11:58)
[2021-06-11] MEDS: HYDROcodone/APAP 5/325MG 1 TAB TABLET PO PRN ×2 (01:44→05:50)
[2021-06-11 03:00] VITALS: BP 171/94
[2021-06-11] MEDS ORDERED: fentaNYL PF VIAL 100 MCG/2 ML VIAL IVP PRN (03:00)
[2021-06-11 03:30] LABS: BASO # 0.1 x10^3/uL (0.0-0.2); BASO % 1 % (0-3); EOS % 0 % (0-3); HEMATOCRIT 32.9 % (36.0-47.0); HEMOGLOBIN 10.5 g/dL (12.0-15.5); LYMPH # 0.8 x10^3/uL (1.0-4.8); LYMPH % 7 % (24-48); MEAN CORPUSCULAR HEMOGLOBIN 22 pg (25-35); MEAN CORPUSCULAR HGB CONC 32 g/dL (31-37); MEAN CORPUSCULAR VOLUME 68 fL (79-100); MONO # 0.3 x10^3/uL (0.0-1.1); MONO % 3 % (0-9); NEUT # 10.1 x10^3/uL (1.8-7.7); NEUT % 90 % (31-73); PLATELET COUNT 346 x10^3/uL (140-400); RED BLOOD COUNT 4.87 x10^6/uL (3.50-5.40); RED CELL DISTRIBUTION WIDTH 19.6 % (11.5-14.5); WHITE BLOOD COUNT 11.3 x10^3/uL (4.0-11.0)
[2021-06-11 03:56] LABS: ALBUMIN 3.1 g/dL (3.4-5.0); CALCIUM 8.7 mg/dL (8.5-10.1); CREATININE 0.8 mg/dL (0.6-1.0); DIRECT BILIRUBIN 0.1 mg/dL (0.0-0.2); GFR 97.1; POTASSIUM 3.9 mmol/L (3.5-5.1); TOTAL BILIRUBIN 0.3 mg/dL (0.2-1.0); TOTAL PROTEIN 7.2 g/dL (6.4-8.2)
[2021-06-11] MEDS: IV RINGERS,LACTATED 1000ML 1,000 ML IV SCH (07:00)
[2021-06-11 07:30] VITALS: BP 161/91
[2021-06-11] MEDS ORDERED: oxyCODONE/APAP 5/325 1 TAB TABLET PO PRN (08:30)
[2021-06-11] MEDS: LISINOPRIL 20 MG TABLET PO SCH (08:48)
[2021-06-11] MEDS: SENNOSIDES/DOCUSATE 8.6/50MG TABLET. PO SCH (08:48)
[2021-06-11] MEDS: DOCUSATE SODIUM 100 MG CAPSULE. PO SCH (08:48)
[2021-06-11] MEDS: hydroCHLOROthiazide 12.5 MG CAPSULE PO SCH (08:48)
[2021-06-11] MEDS: oxyCODONE/APAP 5/325 1 TAB TABLET PO PRN ×2 (08:49→13:05)
[2021-06-11] MEDS ORDERED: OXYC1TAB15 PO (10:38)
--- NOTE | 2021-06-11 10:41 | PDOC3 ---
[facility]-Discharge Summary Date of Admission: Date of Admission: Jun 10, 2021 Date of Discharge: Date of Discharge: Jun 11, 2021 Admission Diagnosis: Admitting Diagnosis: cholecystitis Hospital Course: Hospital Course: Patient is 40-year-old -[place] female presented to the emergency room overnight due to abdominal pain decreased p.o. intake. She said the symptoms began about a week ago after she had eaten some chicken nachos. Says she developed the epigastric right upper quadrant pain and had multiple episodes of vomiting. Initially went to urgent care and there concern for food poisoning was provided symptomatic treatment with antiemetics and pain control. She says over the next few days the symptoms actually subsided. On Wednesday she went out to dinner with her and was not able to eat much but after returning home she ate more of her meal. After that she began having the similar pain nausea vomiting type episodes. Pain was notably worse this time. Initially thought was an episode like last and would self resolve. However through Wednesday and early Wednesday she continued pain and nausea vomiting. Patient presented here last night. Work-up in ER showed acute acalculous cholecystitis on imaging. She was given dose of Zosyn and pain control nausea control and surgery consulted. When I evaluated the patient she was resting in bed said the medications were helping her symptoms. Only home medication is lisinopril for hypertension 06/10 Patient underwent cholecystectomy yesterday tolerated well. When seen this morning said pain was well controlled with oxycodone slowly tolerating diet. Eating plain oatmeal when evaluated. Okay for discharge today today. Sent in pain medications. Work excuse provided. Greater than 30 minutes spent on this discharge. 20 minutes advance care planning Disposition: Disposition/Orders: D/C to Home Activity: Activity: Resume previous activity Diet: Diet: Regular Medications: Home Meds Active Scripts Oxycodone/Apap 5-325 (PERCOCET 5-325 MG TABLET ) 1 Each Tablet, 2 TAB PO PRN Q4HRS PRN for PAIN for 10 Days, #30 TAB Prov:BEN YAO MD 06/11/21 Reported Medications Lisinopril/Hydrochlorothiazide (LISINOPRIL-HCTZ 20-12.5 MG TAB) 1 Each Tablet, 1 TAB PO DAILY for htn, #30 TAB 5 Refills 06/10/21 Scheduled Lisinopril/Hydrochlorothiazide (Lisinopril-Hctz 20-12.5 Mg Tab), 1 TAB PO DAILY, (Reported) Scheduled PRN Oxycodone/Apap 5-325 (Percocet 5-325 Mg Tablet ), 2 TAB PO PRN Q4HRS PRN for PAIN Justicifation of Admission Dx: Justifications for Admission: Justification of Admission Dx: N/A BEN YAO MD Jun 11, 2021 10:41
[2021-06-11 11:15] VITALS: BP 147/82
--- NOTE | 2021-06-11 14:38 | PDOC ---
SURGICAL PROGRESS NOTE DATE: 06/11/21 TIME: 14:37 Subjective Pt with c/o mild pain, but tolerating diet, improved Vital Signs Vital Signs Date Time Temp Pulse Resp B/P (MAP) Pulse Ox O2 Delivery O2 Flow Rate FiO2 06/11/21 14:24 Room Air 06/11/21 11:15 97.8 67 20 147/82 (103) 98 97.8 06/11/21 06:20 2.0 I&O Intake and Output 06/11/21 07:00 Intake Total 615 ml Output Total 100 ml Balance 515 ml Intake Oral 265 ml IV Total 350 ml Output Urine Total 75 ml Estimated Blood Loss 25 ml # Voids 5 General: Alert, Oriented X3, Cooperative, No acute distress Abdomen: Soft, No tenderness Labs Laboratory Tests Test 06/09/21 21:55 06/09/21 21:56 06/09/21 22:01 06/09/21 22:15 White Blood Count 8.3 x10^3/uL (4.0-11.0) Red Blood Count 5.17 x10^6/uL (3.50-5.40) Hemoglobin 11.2 g/dL (12.0-15.5) Hematocrit 35.1 % (36.0-47.0) Mean Corpuscular Volume 68 fL (79-100) Mean Corpuscular Hemoglobin 22 pg (25-35) Mean Corpuscular Hemoglobin Concent 32 g/dL (31-37) Red Cell Distribution Width 19.9 % (11.5-14.5) Platelet Count 386 x10^3/uL (140-400) Neutrophils (%) (Auto) 57 % (31-73) Lymphocytes (%) (Auto) 28 % (24-48) Monocytes (%) (Auto) 8 % (0-9) Eosinophils (%) (Auto) 5 % (0-3) Basophils (%) (Auto) 2 % (0-3) Neutrophils # (Auto) 4.7 x10^3/uL (1.8-7.7) Lymphocytes # (Auto) 2.3 x10^3/uL (1.0-4.8) Monocytes # (Auto) 0.7 x10^3/uL (0.0-1.1) Eosinophils # (Auto) 0.4 x10^3/uL (0.0-0.7) Basophils # (Auto) 0.1 x10^3/uL (0.0-0.2) Platelet Estimate Adequate (ADEQUATE) Polychromasia Slight Hypochromasia Mod Anisocytosis Slight Microcytosis Marked Target Cells Occ Tear Drop Cells Occ Ovalocytes Occ Sodium Level 138 mmol/L (136-145) Potassium Level 3.7 mmol/L (3.5-5.1) Chloride Level 102 mmol/L (98-107) Carbon Dioxide Level 25 mmol/L (21-32) Anion Gap 11 (6-14) Blood Urea Nitrogen 8 mg/dL (7-20) Creatinine 1.0 mg/dL (0.6-1.0) Estimated GFR (Cockcroft-Gault) 75.1 BUN/Creatinine Ratio 8 (6-20) Glucose Level 92 mg/dL (70-99) Calcium Level 9.0 mg/dL (8.5-10.1) Total Bilirubin 0.4 mg/dL (0.2-1.0) Aspartate Amino Transf (AST/SGOT) 414 U/L (15-37) Alanine Aminotransferase (ALT/SGPT) 600 U/L (14-59) Alkaline Phosphatase 198 U/L (46-116) Total Protein 8.3 g/dL (6.4-8.2) Albumin 3.6 g/dL (3.4-5.0) Albumin/Globulin Ratio 0.8 (1.0-1.7) Lipase 103 U/L (73-393) Urine Collection Type U cath Urine Color Straw Urine Clarity Hazy Urine pH 6.0 (<5.0-8.0) Urine Specific [place] >=1.030 (1.000-1.030) Urine Protein Negative mg/dL (NEG-TRACE) Urine Glucose (UA) Negative mg/dL (NEG) Urine Ketones (Stick) Negative mg/dL (NEG) Urine Blood Negative (NEG) Urine Nitrite Negative (NEG) Urine Bilirubin Negative (NEG) Urine Urobilinogen Dipstick 0.2 mg/dL (0.2 mg/dL) Urine Leukocyte Esterase Negative (NEG) Urine RBC Occ /HPF (0-2) Urine WBC Occ /HPF (0-4) Urine Squamous Epithelial Cells Mod /LPF Urine Bacteria Moderate /HPF (0-FEW) Urine Mucus Slight /LPF Bedside Urine HCG, Qualitative Hcg negative (Negative) Influenza Type A Antigen Negative (NEGATIVE) Influenza Type B Antigen Negative (NEGATIVE) SARS-CoV-2 Antigen (Rapid) Negative (NEGATIVE) Test 06/11/21 03:05 White Blood Count 11.3 x10^3/uL (4.0-11.0) Red Blood Count 4.87 x10^6/uL (3.50-5.40) Hemoglobin 10.5 g/dL (12.0-15.5) Hematocrit 32.9 % (36.0-47.0) Mean Corpuscular Volume 68 fL (79-100) Mean Corpuscular Hemoglobin 22 pg (25-35) Mean Corpuscular Hemoglobin Concent 32 g/dL (31-37) Red Cell Distribution Width 19.6 % (11.5-14.5) Platelet Count 346 x10^3/uL (140-400) Neutrophils (%) (Auto) 90 % (31-73) Lymphocytes (%) (Auto) 7 % (24-48) Monocytes (%) (Auto) 3 % (0-9) Eosinophils (%) (Auto) 0 % (0-3) Basophils (%) (Auto) 1 % (0-3) Neutrophils # (Auto) 10.1 x10^3/uL (1.8-7.7) Lymphocytes # (Auto) 0.8 x10^3/uL (1.0-4.8) Monocytes # (Auto) 0.3 x10^3/uL (0.0-1.1) Eosinophils # (Auto) 0.0 x10^3/uL (0.0-0.7) Basophils # (Auto) 0.1 x10^3/uL (0.0-0.2) Sodium Level 139 mmol/L (136-145) Potassium Level 3.9 mmol/L (3.5-5.1) Chloride Level 104 mmol/L (98-107) Carbon Dioxide Level 24 mmol/L (21-32) Anion Gap 11 (6-14) Blood Urea Nitrogen 7 mg/dL (7-20) Creatinine 0.8 mg/dL (0.6-1.0) Estimated GFR (Cockcroft-Gault) 97.1 Glucose Level 131 mg/dL (70-99) Calcium Level 8.7 mg/dL (8.5-10.1) Total Bilirubin 0.3 mg/dL (0.2-1.0) Direct Bilirubin 0.1 mg/dL (0.0-0.2) Aspartate Amino Transf (AST/SGOT) 105 U/L (15-37) Alanine Aminotransferase (ALT/SGPT) 303 U/L (14-59) Alkaline Phosphatase 144 U/L (46-116) Total Protein 7.2 g/dL (6.4-8.2) Albumin 3.1 g/dL (3.4-5.0) Laboratory Tests Test 06/11/21 03:05 White Blood Count 11.3 x10^3/uL (4.0-11.0) Red Blood Count 4.87 x10^6/uL (3.50-5.40) Hemoglobin 10.5 g/dL (12.0-15.5) Hematocrit 32.9 % (36.0-47.0) Mean Corpuscular Volume 68 fL (79-100) Mean Corpuscular Hemoglobin 22 pg (25-35) Mean Corpuscular Hemoglobin Concent 32 g/dL (31-37) Red Cell Distribution Width 19.6 % (11.5-14.5) Platelet Count 346 x10^3/uL (140-400) Neutrophils (%) (Auto) 90 % (31-73) Lymphocytes (%) (Auto) 7 % (24-48) Monocytes (%) (Auto) 3 % (0-9) Eosinophils (%) (Auto) 0 % (0-3) Basophils (%) (Auto) 1 % (0-3) Neutrophils # (Auto) 10.1 x10^3/uL (1.8-7.7) Lymphocytes # (Auto) 0.8 x10^3/uL (1.0-4.8) Monocytes # (Auto) 0.3 x10^3/uL (0.0-1.1) Eosinophils # (Auto) 0.0 x10^3/uL (0.0-0.7) Basophils # (Auto) 0.1 x10^3/uL (0.0-0.2) Sodium Level 139 mmol/L (136-145) Potassium Level 3.9 mmol/L (3.5-5.1) Chloride Level 104 mmol/L (98-107) Carbon Dioxide Level 24 mmol/L (21-32) Anion Gap 11 (6-14) Blood Urea Nitrogen 7 mg/dL (7-20) Creatinine 0.8 mg/dL (0.6-1.0) Estimated GFR (Cockcroft-Gault) 97.1 Glucose Level 131 mg/dL (70-99) Calcium Level 8.7 mg/dL (8.5-10.1) Total Bilirubin 0.3 mg/dL (0.2-1.0) Direct Bilirubin 0.1 mg/dL (0.0-0.2) Aspartate Amino Transf (AST/SGOT) 105 U/L (15-37) Alanine Aminotransferase (ALT/SGPT) 303 U/L (14-59) Alkaline Phosphatase 144 U/L (46-116) Total Protein 7.2 g/dL (6.4-8.2) Albumin 3.1 g/dL (3.4-5.0) Assessment/Plan s/p lap lennox Doing well OK to d/c home. Justicifation of Admission Dx: Justifications for Admission: Justification of Admission Dx: N/A MIGUEL ANGEL JOLLEY MD Jun 11, 2021 14:38
--- NOTE | 2021-06-11 14:49 | NUR ---
SS following up with discharge planning. SS reviewed pt chart and discussed with pt RN. Pt is currently on room air. Discharge order on the chart for home with self care.
--- NOTE | 2021-06-11 15:04 | NUR ---
Discharge Note: Patient was discharged home with self care. Patients IV was discontinued without any complications per RN. Patient was given discharge summary/instructions, follow-ups, and educational material. Patients new prescription was sent to patients preferred pharmacy. Patients spouse at bedside at the time of discharge education. Patient was taken out via wheelchair with all personal belongings, through main entrance accompanied by this RN, where patients spouse was waiting for her to take her home.
[2021-06-11] MEDS ORDERED: LACTOBACILLUS RHAMNOSUS GG 1 CAPSULE. PO SCH (21:00)
--- NOTE | 2021-06-12 15:09 | PATHOLOGY ---
[facility] Accession Number: [id number] . 01 Material submitted: . gallbladder - GALLBLADDER AND CONTENTS . 01 Clinical history: . LAP JAMES . 02 Diagnosis: Gallbladder, laparoscopic cholecystectomy: - Cholelithiasis. - Cholesterolosis, focal. - Chronic cholecystitis with focally increased eosinophils. (JPM:[facility]; 06/12/2021) [facility] 06/12/2021 1236 Local . 02 Comment: There is no evidence of malignancy. (JPM:[facility]; 06/12/2021) . 02 Electronically signed: . Toby Pedro MD, Pathologist NPI- [id number] . 01 Gross description: . Fixative: Formalin Labeled: Gallbladder and contents Specimen received: Intact gallbladder Dimensions: 9.0 x 2.7 x 2.7 cm Serosa: Light fan-pink to light macias, with light fan-yellow to light green, shaggy and cauterized adventitia Lymph node: None identified Mucosa: Velvety and bile-stained with yellow stippling with possible light green-yellow lesions ranging from 0.1 cm to 0.2 cm found within body Average wall thickness: 0.2 cm Calculi: Present, multiple light green-yellow granular calculi found within fundus, body, and neck measuring 0.8 x 0.6 x 0.2 cm Abnormalities: Possible lesion . A1- Accounts Receivable Associate body (with equal opportunity representative possible lesion), fundus, and the cystic duct margin. ([facility]; 06/11/2021) [facility] 06/11/2021 1533 Local . 02 Pathologist provided ICD-10: K80.10, K82.4 . 02 CPT . 452198 Specimen Comment: A courtesy copy of this report has been sent to [phone] Specimen Comment: [phone], Specimen Comment: Report sent to , DR YAO / DR EDWARDS Specimen Comment: A duplicate report has been generated due to demographic updates. Performed at: [facility] [address], [place] [id number] MD Yoshi Willis MD Phone: [phone] Performed at: [facility] [address] [place], [place] [id number] MD Toby Pedro MD Phone: [phone]
== END 2021-06-11 15:08 | disposition home or self-care (01) ==
LOC: ER 20:35 → 2 NORTH 06-10 02:26 → INTOOBSV 06-10 02:26
PROVIDERS: ADMIT Student in an Organized Health Care Education/Training Program; ATTEND Student in an Organized Health Care Education/Training Program
DX: K81.0 Acute cholecystitis (principal); Z20.822 Contact with and (suspected) exposure to COVID-19; I10 Essential (primary) hypertension; E66.01 Morbid (severe) obesity due to excess calories; R10.11 Right upper quadrant pain; Z98.891 History of uterine scar from previous surgery; Z79.899 Other long term (current) drug therapy; Z98.890 Other specified postprocedural states; Z68.43 Body mass index [BMI] 50.0-59.9, adult
CPT/HCPCS: 36415; 47563; 74300; 76705; 80048; 80053; 80076; 81001; 81025; 83690; 85025; 87086; 87428; 96361; 96365; 96366; 96375; 96376; 99284; A4213; A4314; A4930; C1887; G0378; J0690; J0780; J1100; J1644; J2250; J2405; J2543; J2704; J3010; J3490; J7030; Q9967; 88304; G0379; J0330